=== PATIENT | male | born 1995 | race African-American/Black ===

== ENCOUNTER 2018-08-21 22:04 | Emergency (ER) | payer OTHER ==
[2018-08-21] MEDS ORDERED: LIDOCAINE 1% 20 ML MDV ONE (22:19)
--- NOTE | 2018-08-21 23:09 | EDPHYS ---
Physician Documentation [facility] Name: Danny Foster Age: 23 yrs Sex: Male : 1995 Arrival Date: 08/21/2018 Time: 22:06 Bed 5 Private MD: ED Physician Jasiel Adkins HPI: 08/21 22:09 This 23 yrs old Black Male presents to ER via Unassigned with complaints of hand rn injury, laceration. 22:09 The patient or guardian reports a contusion, injury, a laceration. The complaints rn affect the left hand diffusely. Onset: The symptoms/episode began/occurred just prior to arrival. Modifying factors: The symptoms are alleviated by nothing, the symptoms are aggravated by nothing. Severity of symptoms: At their worst the symptoms were mild, in the emergency department the symptoms are unchanged. The patient has not experienced similar symptoms in the past. REports punched glass window, mild pain to left hand but brought due to lacerations of dorsum of hand, denies any limited movement/weakness. + mild pain. . Historical: - Allergies: 22:10 No Known Allergies; tl2 - Home Meds: 22:10 None [Active]; tl2 - PMHx: 22:10 None; tl2 - PSHx: 22:10 None; tl2 - Immunization history:: Adult Immunizations up to date. - Social history:: Smoking status: Patient/guardian denies using tobacco. - Family history:: not pertinent. - Ebola Screening: : No symptoms or risks identified at this time. - Hospitalizations: : No recent hospitalization is reported. ROS: 22:09 Constitutional: Negative for fever, chills, and weight loss, MS/Extremity: + left hand rn injury and laceration Skin: + 2 lacerations to left hand Neuro: Negative for weakness/numbness/tingling. Exam: 22:09 Constitutional: This is a well developed, well nourished patient who is awake, alert, rn and in no acute distress. MS/ Extremity: Pulses equal, no cyanosis. Neurovascular intact. Full, normal range of motion. Equal circumference. Superficial lacerations of dorsum of left hand, diaganol/center, no tendon or nerve injury, mild venous bleeding. No gross bony deformity. Vital Signs: 22:07 BP 116 / 69; Pulse 57; Resp 16; Temp 97.8(O); Pulse Ox 100% ; Weight 95.25 kg; Height 6 tl2 ft. 1 in. (185.42 cm); Pain 5/10; 23:28 BP 119 / 72; Pulse 61; Resp 17; Temp 97.8; Pulse Ox 100% ; Pain 0/10; tl1 22:07 Body Mass Index 27.71 (95.25 kg, 185.42 cm) tl2 Laceration: 23:05 Wound Repair of 13cm ( 5.1in ) subcutaneous laceration to dorsum of left hand. Distal rn neuro/vascular/tendon intact. Anesthesia: Wound infiltrated with 5 mls of 1% lidocaine. Wound prep: Extensive cleansing by nurse, Wound irrigation by nurse, Particulate matter removal of glass, Wound explored extensively. Skin closed with 13 4-0 Prolene using interrupted sutures and sterile technique. Dressed with Neosporin. Patient tolerated well. MDM: 22:06 Patient medically screened. rn 23:05 Differential diagnosis: closed fracture, contusion, laceration. Data reviewed: vital rn signs, nurses notes, radiologic studies, plain films, and as a result, I will discharge patient. Counseling: I had a detailed discussion with the patient and/or guardian regarding: the historical points, exam findings, and any diagnostic results supporting the discharge/admit diagnosis, radiology results, the need for outpatient follow up, to return to the emergency department if symptoms worsen or persist or if there are any questions or concerns that arise at home. Response to treatment: the patient's symptoms have markedly improved after treatment, and as a result, I will discharge patient. Special discussion: I discussed with the patient/guardian in detail that at this point there is no indication for admission to the hospital. It is understood, however, that if the symptoms persist or worsen the patient needs to return immediately for re-evaluation. 08/21 22:07 Order name: XRAY Hand LEFT 3 View rn 08/21 22:08 Order name: Prolene, Sutures; Complete Time: 22:16 rn 08/21 22:08 Order name: Dressing - Wound; Complete Time: 22:16 rn 08/21 22:08 Order name: Gloves, Sterile; Complete Time: 22:16 rn 08/21 22:08 Order name: Setup Suture Tray; Complete Time: 22:16 rn Administered Medications: 22:40 Drug: Lidocaine (1 %) 1 vials Volume: 20 ml; Route: Infiltration; tl2 Disposition: 08/21/18 23:08 Discharged to Home. Impression: Contusion of left hand, Superficial lacerations of left hand. - Condition is Stable. - Discharge Instructions: Laceration Care, Adult, Sutured Wound Care. - Medication Reconciliation Form, Thank You Letter, Antibiotic Education, Prescription Opioid Use form. - Follow up: Private Physician; When: 14 days; Reason: Staple/Suture removal. - Problem is new. - Symptoms have improved. Signatures: Dispatcher [employer] EDMS Jasiel Adkins MD MD rn Zoraida Miramontes RN RN tl1 Leda Head RN RN tl2 Corrections: (The following items were deleted from the chart) 23:28 23:08 08/21/2018 23:08 Discharged to Home. Impression: Contusion of left hand; tl1 Superficial lacerations of left hand. Condition is Stable. Forms are Medication Reconciliation Form, Thank You Letter, Antibiotic Education, Prescription Opioid Use. Follow up: Private Physician; When: 14 days; Reason: Staple/Suture removal. Problem is new. Symptoms have improved. rn
--- NOTE | 2018-08-21 23:09 | ER ---
Nurse's Notes [facility] Name: Danny Foster Age: 23 yrs Sex: Male : 1995 Arrival Date: 08/21/2018 Time: 22:06 Bed 5 Private MD: Diagnosis: Contusion of left hand;Superficial lacerations of left hand Presentation: 08/21 22:09 Presenting complaint: Patient states: Punched a glass window, sustained two lacerations tl2 to dorsal side of left hand. Bleeding controlled. ROM intact. Transition of care: patient was not received from another setting of care. Onset of symptoms was August 21, 2018 at 21:00. Risk Assessment: Do you want to hurt yourself or someone else? Patient reports no desire to harm self or others. Initial Sepsis Screen: Does the patient meet any 2 criteria? No. Patient's initial sepsis screen is negative. Does the patient have a suspected source of infection? No. Patient's initial sepsis screen is negative. Care prior to arrival: None. 22:09 Method Of Arrival: Law Enforcement: [place] [employer] tl2 22:09 Acuity: NAT 4 tl2 Triage Assessment: 22:10 General: Appears in no apparent distress. comfortable, Behavior is calm, cooperative, tl2 appropriate for age. Pain: Complains of pain in dorsum of left hand. Neuro: Level of Consciousness is awake, alert, obeys commands, Oriented to person, place, time, situation. Cardiovascular: Denies chest pain. Respiratory: Airway is patent Respiratory effort is even, unlabored, Respiratory pattern is regular, symmetrical. GI: No signs and/or symptoms were reported involving the gastrointestinal system. Derm: Skin is pink, warm \T\ dry. Injury Description: Laceration sustained to dorsum of left hand is clean, 2.6 to 7.5 cm long, bleeding moderately, was sustained 1-2 hours ago. moderate bleeding noted at this time. Historical: - Allergies: 22:10 No Known Allergies; tl2 - Home Meds: 22:10 None [Active]; tl2 - PMHx: 22:10 None; tl2 - PSHx: 22:10 None; tl2 - Immunization history:: Adult Immunizations up to date. - Social history:: Smoking status: Patient/guardian denies using tobacco. - Family history:: not pertinent. - Ebola Screening: : No symptoms or risks identified at this time. - Hospitalizations: : No recent hospitalization is reported. Screenin:13 Abuse screen: Denies threats or abuse. Nutritional screening: No deficits noted. tl2 Tuberculosis screening: No symptoms or risk factors identified. Fall Risk None identified. Assessment: 22:15 General: see triage assessment. tl2 Vital Signs: 22:07 BP 116 / 69; Pulse 57; Resp 16; Temp 97.8(O); Pulse Ox 100% ; Weight 95.25 kg; Height 6 tl2 ft. 1 in. (185.42 cm); Pain 5/10; 23:28 BP 119 / 72; Pulse 61; Resp 17; Temp 97.8; Pulse Ox 100% ; Pain 0/10; tl1 22:07 Body Mass Index 27.71 (95.25 kg, 185.42 cm) tl2 ED Course: 22:06 Patient arrived in ED. rn 22:06 Jasiel Adkins MD is Attending Physician. rn 22:07 Arm band placed on right wrist. tl2 22:09 Leda Head RN is Primary Nurse. tl2 22:10 Triage completed. tl2 22:13 Patient has correct armband on for positive identification. Bed in low position. Call tl2 light in reach. Side rails up X 1. 23:04 XRAY Hand LEFT 3 View In Process Unspecified. EDMS 23:05 Assist provider with laceration repair on dorsum of left hand that was between 2.6 to tl2 7.5 cm using sutures. Set up tray. Performed by Jasiel Adkins MD Dressed with Neosporin, Patient tolerated well. 23:28 Patient did not have IV access during this emergency room visit. tl1 Administered Medications: 22:40 Drug: Lidocaine (1 %) 1 vials Volume: 20 ml; Route: Infiltration; tl2 Outcome: 23:08 Discharge ordered by . rn 23:27 Discharged to with penitentiary guards back to penitentiary unit tl1 23:27 Condition: stable 23:27 Discharge instructions given to patient, security guards Instructed on discharge instructions, follow up and referral plans. wound care, Demonstrated understanding of instructions, follow-up care, wound care. 23:28 Patient left the ED. tl1 Signatures: Dispatcher [employer] EDMS Jasiel Adkins MD MD rn Lasagna, Tonya, RN RN tl1 Leda Head RN RN tl2 Corrections: (The following items were deleted from the chart) 22:12 22:07 BP 116 / 69; Pulse 57bpm; Resp 16bpm; Pulse Ox 100%; Temp 97.8F Oral; tl1 tl2
--- NOTE | 2018-08-22 08:38 | RAD REPORT ---
EXAM DESCRIPTION: RAD - Hand Left 3 View - 08/21/2018 11:04 pm CLINICAL HISTORY: Hand pain, trauma, laceration to the dorsal surface of the hand COMPARISON: None. FINDINGS: No fracture, dislocation or periosteal reaction noted. No acute bone or joint finding seen . There is a punctate 1- 2 millimeter sized foreign body in the soft tissues dorsum of the hand betwe en the third and fourth metacarpal bones. There may be an additional linear foreign body or proximall y in the dorsum. This is seen only on the lateral projection. IMPRESSION: No acute bone or joint finding. Small foreign body dorsum of the hand between the third and fourth metatarsals with possible second l inear foreign body more proximally.
== END 2018-08-21 23:28 | disposition home or self-care (01) ==
LOC: ER 22:04
PROC: 0JQK3ZZ Repair Left Hand Subcutaneous Tissue and Fascia, Percutaneous Approach (ICD-10-PCS; principal; 2018-08-21)
DX: S61.412A Laceration without foreign body of left hand, initial encounter (principal); S60.222A Contusion of left hand, initial encounter; W25.XXXA Contact with sharp glass, initial encounter; W22.8XXA Striking against or struck by other objects, initial encounter
CPT/HCPCS: 99283